=== PATIENT | female | born 1950 | race Caucasian/White ===

== ENCOUNTER 2017-04-11 15:07 | Outpatient (CLI) | payer MEDICARE, OTHER | END 2017-04-11 15:08 | disposition critical access hospital (66) | LOC: EMS 15:07 | PROVIDERS: ATTEND Surgery | DX: R56.9 Unspecified convulsions (principal) | CPT/HCPCS: A0425; A0427 ==

== ENCOUNTER 2017-04-11 15:41 | Inpatient (IN) | payer MEDICARE, OTHER ==
[2017-04-11] MEDS ORDERED: levETIRAcetam INJ 1,000 MG in SODIUM CHLORIDE 0.9% 100ML 100 ML IV STA (15:43)
[2017-04-11] MEDS ORDERED: SODIUM CHLORIDE 0.9% 1,000 ML IV ONE (15:43)
[2017-04-11] MEDS ORDERED: IOPAMIDOL-300 100 ML VIAL IVP ONE (16:53)
[2017-04-11] MEDS ORDERED: DEXAMETHASONE 10 MG/ML VIAL IVP STA (17:39)
[2017-04-11] MEDS ORDERED: DEXAMETHASONE 10 MG/ML VIAL ONE (17:40)
[2017-04-11] MEDS ORDERED: ONDANSETRON ODT 4 MG TABLET TL PRN (18:32)
[2017-04-11] MEDS ORDERED: MORPHINE 2 MG/ML SYRINGE IVP PRN (18:32)
[2017-04-11] MEDS ORDERED: PROCHLORPERAZINE 10 MG/2 ML VIAL IVP PRN (18:32)
[2017-04-11] MEDS ORDERED: HYDROcod/ACETAM 5/325 MG TABLET PO PRN (18:32)
[2017-04-11] MEDS ORDERED: ACETAMINOPHEN 325 MG TABLET PO PRN (18:32)
[2017-04-11] MEDS ORDERED: ONDANSETRON 4 MG/2 ML VIAL IVP PRN (18:32)
[2017-04-11] MEDS: SODIUM CHLORIDE 0.9% 1,000 ML IV SCH (19:30)
[2017-04-11] MEDS: levETIRAcetam 250 MG TABLET PO SCH (20:36)
[2017-04-11] MEDS: SODIUM CHLORIDE FLUSH 0.9% 10 ML SYRINGE IVP SCH (20:38)
[2017-04-12] MEDS: SODIUM CHLORIDE 0.9% 1,000 ML IV SCH ×2 (04:51→14:19)
[2017-04-12] MEDS: SODIUM CHLORIDE FLUSH 0.9% 10 ML SYRINGE IVP SCH ×3 (05:03→22:32)
[2017-04-12] MEDS: DEXAMETHASONE 4 MG TABLET PO SCH (08:51)
[2017-04-12] MEDS: levETIRAcetam 250 MG TABLET PO SCH ×2 (08:51→22:25)
[2017-04-12] MEDS: POLYETHYLENE GLYCOL 3350 17 GM PACKET PO SCH (08:52)
[2017-04-12] MEDS: SODIUM CHLORIDE FLUSH 0.9% 10 ML SYRINGE IVP PRN (14:19)
[2017-04-12] MEDS ORDERED: GABAPENTIN 100 MG CAPSULE PO SCH (22:00)
[2017-04-13] MEDS: SODIUM CHLORIDE 0.9% 1,000 ML IV SCH (00:26)
[2017-04-13] MEDS: SODIUM CHLORIDE FLUSH 0.9% 10 ML SYRINGE IVP SCH ×2 (06:21→13:16)
[2017-04-13] MEDS: SODIUM CHLORIDE FLUSH 0.9% 10 ML SYRINGE IVP PRN (06:33)
[2017-04-13] MEDS: DEXAMETHASONE 4 MG TABLET PO SCH (08:36)
[2017-04-13] MEDS: levETIRAcetam 250 MG TABLET PO SCH ×2 (08:36→21:08)
[2017-04-13] MEDS: LISINOPRIL 5 MG TABLET PO SCH (08:36)
[2017-04-13] MEDS: SERTRALINE 25 MG TABLET PO SCH (08:37)
[2017-04-13] MEDS: POTASSIUM CHLORIDE INJ 40 MEQ in SODIUM CHLORIDE 0.9% 1,000 ML IV SCH ×2 (08:39→21:10)
[2017-04-13] MEDS: POLYETHYLENE GLYCOL 3350 17 GM PACKET PO SCH (08:39)
[2017-04-13] MEDS ORDERED: POTASSIUM CHLORIDE 20 MEQ TABLET PO SCH (09:00)
[2017-04-13] MEDS ORDERED: MAGIC MOUTHWASH PO PRN (13:00)
[2017-04-13] MEDS ORDERED: MAGNESIUM SULFATE 2 GRAM 50 ML IV ONE (15:00)
[2017-04-14] MEDS: SODIUM CHLORIDE FLUSH 0.9% 10 ML SYRINGE IVP PRN (05:31)
[2017-04-14] MEDS: SODIUM CHLORIDE FLUSH 0.9% 10 ML SYRINGE IVP SCH ×3 (05:31→21:22)
[2017-04-14] MEDS: levETIRAcetam 250 MG TABLET PO SCH ×2 (08:57→21:22)
[2017-04-14] MEDS: LISINOPRIL 5 MG TABLET PO SCH (08:57)
[2017-04-14] MEDS: DEXAMETHASONE 4 MG TABLET PO SCH (08:57)
[2017-04-14] MEDS: POLYETHYLENE GLYCOL 3350 17 GM PACKET PO SCH (08:57)
[2017-04-14] MEDS: SERTRALINE 25 MG TABLET PO SCH (09:00)
[2017-04-14] MEDS ORDERED: oxyCODONE 10 MG/0.5 ML SYRINGE PO PRN (12:28)
[2017-04-15] MEDS: SODIUM CHLORIDE FLUSH 0.9% 10 ML SYRINGE IVP SCH ×2 (09:29→14:09)
[2017-04-15] MEDS: DEXAMETHASONE 4 MG TABLET PO SCH (09:30)
[2017-04-15] MEDS: levETIRAcetam 250 MG TABLET PO SCH (09:31)
[2017-04-15] MEDS: LISINOPRIL 5 MG TABLET PO SCH (09:31)
[2017-04-15] MEDS: POLYETHYLENE GLYCOL 3350 17 GM PACKET PO SCH (09:31)
[2017-04-15] MEDS: SERTRALINE 25 MG TABLET PO SCH (09:32)
[2017-04-15] MEDS ORDERED: POTASSIUM CHLORIDE 20 MEQ TABLET PO SCH (13:00)
[2017-04-15] MEDS: SODIUM CHLORIDE FLUSH 0.9% 10 ML SYRINGE IVP PRN (15:04)
== END 2017-04-15 15:15 | DRG 100 ==
DX: R56.9 Unspecified convulsions (principal); G93.6 Cerebral edema; C79.31 Secondary malignant neoplasm of brain; I42.7 Cardiomyopathy due to drug and external agent; D63.0 Anemia in neoplastic disease; E87.6 Hypokalemia; T45.1X5S Adverse effect of antineoplastic and immunosuppressive drugs, sequela; B37.9 Candidiasis, unspecified; R19.7 Diarrhea, unspecified; F32.9 Major depressive disorder, single episode, unspecified; M79.2 Neuralgia and neuritis, unspecified; Z92.3 Personal history of irradiation; Z85.038 Personal history of other malignant neoplasm of large intestine; Z90.49 Acquired absence of other specified parts of digestive tract; Z86.79 Personal history of other diseases of the circulatory system

== ENCOUNTER 2017-04-21 07:05 | Outpatient (CLI) | payer MEDICARE, OTHER | END 2017-04-21 07:06 | disposition home or self-care (01) | LOC: LAB.R 07:05 | DX: G40.901 Epilepsy, unspecified, not intractable, with status epilepticus (principal); Z51.81 Encounter for therapeutic drug level monitoring | CPT/HCPCS: 80177 ==

== ENCOUNTER 2017-04-28 15:15 | Outpatient (CLI) | payer MEDICARE, OTHER ==
[2017-04-28 16:16] LABS: BILIRUBIN,URINE NEGATIVE (NEGATIVE)
[2017-04-28 16:20] LABS: UA w/ MICROSCOPIC CHARGE YES
[2017-04-28 16:29] LABS: WBC,URINE >25 /HPF (0-5)
[2017-04-28 16:30] LABS: UR CULTURE IF IND INDICATED
== END 2017-04-28 15:16 | disposition home or self-care (01) ==
LOC: LAB.R 15:15
DX: N39.0 Urinary tract infection, site not specified (principal)
CPT/HCPCS: 81001; 81003; 87077; 87086

== ENCOUNTER 2017-05-02 15:30 | Outpatient (CLI) | payer MEDICARE, OTHER ==
--- NOTE | 2017-05-05 09:18 | CONSULTATION NOTE ---
DATE OF CONSULTATION: 05/03/2017 00:00:00 REQUESTING PROVIDER: Kal Oliveira MD TIME OF VISIT: 1530 to 1645 TOPIC: Followup palliative care consult. Thank you, Dr. Oliveira, for asking the palliative care consult service to be involved in the care of yo ur patient. I am asked to provide support for symptom management as well as goals of care. BRIEF HISTORY OF PRESENT ILLNESS: This is a adis 67-year-old woman with metastatic right colon canc er to the liver, lung, and lymph nodes since 10/2015. She did undergo a right hemicolectomy in 5 and has had intermittent diarrhea related to her short bowel syndrome, as well as chemotherapy caus ing increased exacerbations of the diarrhea. She did have a long and complicated [facility] with many disappointments as far as finding advanced disease on diagnosis. This continues to be of much sadness, particularly to her . Her care has been split between [place], [place] and up [facility] related to their "snowbird schedule." She has finished full cycles of FOLFOX and Avastin, which she finished in 05/2016. At that point in time, was showed to have residual periaorti c adenopathy, was unable to tolerate Xeloda and Avastin due to toxicity so had received maintenance 5 -FU and Avastin since 07/2016. She did return back to [place] to follow up at her oncologist down the re. It was discovered that she did have cardiomyopathy and CHF with diastolic dysfunction so she was off therapy for a couple of months for which they actually did have some time that they enjoyed and t raveled in their RV. In 12/2016, her CEA was rising and it was discovered she had underlying neuro sy mptoms that included tremors and leaning to the left. 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 She did undergo brain irradiation, which was completed in 01/2017 and after that was tapered off her Decadron, which she finished on her travels back here to [facility]. They re turned here about the beginning of March. After her taper, unfortunately she had some recurrent seizure s and was admitted to [facility] from 04/12/2017 to 04/15/2017 with vasogenic edema, progressive brain mets, acute anemia and hypokalemia. On discharge, she was discharged to [facility] and actually wa s improving until just previous to her discharge she did present with some symptoms of UTI, fortunate ly they are waiting for the [facility], and just today has started on her Keflex 250 mg 4 times a day x5 d ays. She is quite weak, very tremulous and appears quite frail and fragile. She has been home for a c ouple of days now. Her is quite concerned as it is his perception she has lost ground, has le ss energy to be able to ambulate, is mostly wheelchair bound, is feeling weakened overall. SYMPTOM BURDEN: The patient denies any pain though she does have lower extremity neuropathy, chemothe rapy-induced. Some tenderness with palpation to her lower extremities, but mostly it is numbness. She also has some that extends up to her forearms. This has impacted her balance detention. She presents with fatigue and tiredness, shakiness. Denies nausea. Her appetite is poor though she is trying to k eep her caloric intake up. She has some intermittent shortness of breath. Denies depression. Please s ee palliative care discussion. Presents with anxiety and is quite concerned about her quality of life . PERFORMANCE STATUS: The patient is able to ambulate a few steps with her walker. She had actually mad e quite a bit of progress with PT and OT. We are all hoping that this is just as a result of her UTI. She does need assistance with bathing. I would put her on a palliative care performance status of 50 % today. REVIEW OF SYSTEMS ENT: She does have some generalized mouth discomfort. Has been having ongoing symptoms of oral candid iasis for which she has taken nystatin. CARDIOVASCULAR: She does describe some intermittent chest pain that she calls twinges. It does happen about 1 time a day, does not stay sustained, but is of course a concern. She does have exertional dy spnea. RESPIRATORY: Does have shortness of breath with exertion. No cough. GASTROINTESTINAL: She does have loose stools. The incontinence has gotten better, but her episodes ar e about 2-3 a day now. She does have poor appetite, early satiety, and has not had any nausea. GENITOURINARY: She denies pain and burning, has had intermittent incontinence. Does have some urgency , and now has confirmed UTI. MUSCULOSKELETAL: She is quite weak and shaky. INTEGUMENTARY: She does have a dressing intact on her left toe. Was recently changed though so I did not look at it. She reports it is a residual toenail that has come off. NEUROLOGIC: She has not had any recurrent seizures. She does have some short-term memory issues. 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 PSYCHIATRIC: Please see palliative care discussion. ENDOCRINE: No history of hypothyroidism or diabetes. HEMATOLOGIC: She has anemia. Her last counts were from the hospital from 04/15/2017 show her white co unt up at 11.6, hemoglobin 11.1, hematocrit 33.6, neutrophils 7.8 consistent hopefully with just her UTI. She also has low potassium at 3.3, total protein 5.3, albumin 2.5. PHYSICAL EXAMINATION GENERAL APPEARANCE: The patient does appear with alopecia, quite frail, somewhat tremulous and fragil e in appearance. She is intermittently tearful through our exam. EYES: Normal on inspection. ENT: She does have candidiasis lesions on her tongue buccally and toward the back of her throat. She denies discomfort with this. NECK: Trachea is midline. RESPIRATORY: Her breath sounds are clear throughout. CARDIOVASCULAR: Her pulse is 110. She is quite tachy. Blood pressure 112/62. Her O2 saturations are 9 5%. Her temperature today is 96.9. ABDOMEN: Hyperactive bowel tones, somewhat distended. SKIN: Her color is pale. She does have bruising on her left arm. EXTREMITIES: She is somewhat tremulous on her left side. She does follow all commands. I did not have her ambulate today. ALLERGIES: GABAPENTIN. MEDICATION LIST 1. Dexamethasone 4 mg twice a day. 2. Keppra 500 mg twice a day. 3. Lisinopril 5 mg daily. 4. Potassium chloride 20 mEq daily. 5. Vitamin D3, 1000 units 1 tab daily. 6. Calcium 600 mg 1 tab twice daily. 7. Nystatin 1000 units/mL, up to 5 mL 3 times a day. 8. Keflex 250 mg 4 times a day x5 days. 9. Hydrocodone/APAP 5/325 mg 1 tablet up to every 4 hours as needed for moderate to severe pain. 10. Tylenol 325 mg 2 tablets up to every 4 hours for mild to moderate pain. 11. Ondansetron 4 mg 1 tablet under tongue every 6 hours as needed for nausea. PALLIATIVE CARE DISCUSSION: Who was present: Myself, the patient, and her Álvaro. We did revi ew her current journey up to this point, as far as disappointments and successes along the way. When asked her understanding of her illness, both of them do appear to understand that she is seriously il l but are quite hopeful that she will return to some level of functioning and improved quality of lif e, hoping for increased quantity of life as well. The patient did not share explicitly that she under stands her decline, but did share she is hoping for the best to stay positive and upright, and her go al is to return to some level of independence. There has been some concern expressed through other sd mbers of the clinical team that her is having trouble accepting her prognosis. I did spend qu ite a bit of time talking with the about his concerns; he is hopeful for some improvement and his approach of wanting to keep a good attitude and hope for the best for her. She has a daughter Ector hung who has been providing good support through the last few years, she will be part of the [facility] and is expected within the next few days; she is going to assist them with bathing. Álvaro drake feels like he is doing fairly well in meeting her needs and this is confirmed by the patient. Latia linares's perception is that he is a 32-year [place] man and team truck driver, and this is not his forte, but stephania emmanuelly is quite adoring of his and very fearful of her decline. Given their request to focus on t he here and now, though the patient does know that she can ask questions if things are changing, I di d not approach revisiting the POLST form, which currently is FULL CODE WITH LIMITED INTERVENTIONS. Gi alexia the current situation, the agreement was to allow them to set the goals and would provide support and assistance along the way, of course recognizing the situation remains tenuous. In the context of her goals, as far as wanting to regain strength hopefully, she [facility]. This was confirmed. IMPRESSION: This is a 67-year-old woman with metastatic colon cancer to the liver, lung, and nodes, n ow with metastatic disease to the brain. She presents as fairly frail and fragile with the hope to ga in quality and quantity of life over the next several months. Will accept palliative care support for meeting these goals and will provide anticipatory guidance as allowed and indicated. RECOMMENDATIONS/COUNSELING DONE 1. UTI. The patient is just now starting her antibiotic. Does show sensitivity to the medication she is on. Unfortunately, also is high risk for exacerbating her diarrhea. She has used Imodium and Lomot il in the past, but has found most helpful in slowing down her output is Benefiber. She will resume t his, but also aware she may need to start the Lomotil as well. She reports she often ends up with vag inal candidiasis. Given she already has oral candidiasis, I will go ahead and give her a prescription for Diflucan 150 mg x1 as she does not feel she can currently manage a Monistat course of vaginal cr eam. 2. Generalized weakness. The patient does need wheelchair to be able to maneuver in the house to meet her care needs as far as supporting her activities of daily living, transfer to the bathroom for turner leting and bathing cannot be sufficiently resolved by a walker. Given her fatigue, lack of strength, and left-sided weakness. She can safely use a manual wheelchair in her home, but will need specificat ions due to her mobile home. Her is available as well for using the wheelchair to help access toileting and bathing facilities if patient needs assistance. These would include an outer wheelbase of 23-3/4 inches, a seat base of 18 inches, a 2.5 inch pad, as well as a 16 x 16 seated upright comp onent. This will assist in meeting her day to day needs. She also will need PT and OT for strengtheni ng and equipment training, PT for transfer training, OT for bath setup, and home health aide, if acce pted, for bathing assist. 3. Left toe wound. Currently has a dressing on but was being addressed at the care home. She will need dressing changes every few days, cleanse the toe with normal saline and cover with a piece of Xe roform and then wrap with gauze and secure tape, changing every other day or as soiled. She will need nursing to oversee this as well as nursing to oversee her symptom management and medication adherenc e. She was unable to get an appointment with Dr. Vazquez until May. Did recommend she follow up with Dr. Batsheva Chris, who is in [place], to see if she can get a sooner appointment. 4. Advanced care planning. The patient does have a POLST form that she had done with Anushka SRINIVASAN . At this point in time, we are reestablishing rapport. We will revisit this at a future appointment. Her goals currently are to try and regain some independence, focus on quality of life, recognizing t hat quantity of life is limited and hoping for the best. She does have a fairly strong nicole based ap proach to life, they are not currently connected to any community or nicole community. I did offer the medical palliative care safety professional and they will let me know if this will be of help. 5. Protein-calorie malnutrition. I did encourage to continue to push calories, small frequent feeding s. Given her ongoing dose of Decadron and some intermittent chest discomfort, I did recommend they re institute her Prilosec twice a day. Also encouraged some kind of supplement. She is LACTAID INTOLERAN T and they will continue to work on her caloric intake. Thank you, Dr. Oliveira, for asking the palliative care consult service to be involved in the care of yo ur patient. I will continue to provide support in the current situation. The patient does require [facility], did provide a [id number] today for services with nursing for wound care, medication adher ence and symptom management followup, PT for transfer training and strengthening and caregiver traini javi, OT for bath setup and ADLs and dressing, and home health aide for bathing assistance. The patient does have significant fatigue and weakness related to her disease and recent infection, and remains homebound. It is a taxing and considerable effort for her to leave the home. TIME SPENT: Seventy-five minutes with greater than 50% of this done in counseling, coordination of ca re, followup with home health referral, their review of home management, recommendations for symptoms and anticipatory guidance. JOB #: [id number] EXT JOB #:[id number]
== END 2017-05-02 15:31 | disposition home or self-care (01) ==
LOC: PC 15:30
PROVIDERS: ATTEND Nurse Practitioner Adult Health
DX: Z51.5 Encounter for palliative care (principal); N39.0 Urinary tract infection, site not specified; R53.1 Weakness; S91.109A Unspecified open wound of unspecified toe(s) without damage to nail, initial encounter; E46 Unspecified protein-calorie malnutrition; R19.7 Diarrhea, unspecified; B37.0 Candidal stomatitis; C18.2 Malignant neoplasm of ascending colon; C78.7 Secondary malignant neoplasm of liver and intrahepatic bile duct; C78.00 Secondary malignant neoplasm of unspecified lung; C77.9 Secondary and unspecified malignant neoplasm of lymph node, unspecified; Z90.49 Acquired absence of other specified parts of digestive tract; K91.2 Postsurgical malabsorption, not elsewhere classified; I42.9 Cardiomyopathy, unspecified; I50.30 Unspecified diastolic (congestive) heart failure; Z99.3 Dependence on wheelchair; R53.83 Other fatigue; G62.0 Drug-induced polyneuropathy; R06.02 Shortness of breath; F41.9 Anxiety disorder, unspecified; R07.9 Chest pain, unspecified; R68.81 Early satiety; Z79.891 Long term (current) use of opiate analgesic
CPT/HCPCS: 99350

== ENCOUNTER 2017-05-13 08:00 | Outpatient (CLI) | payer MEDICARE, OTHER ==
[2017-05-13 19:15] LABS: HCT - HEMATOCRIT 36.1 % (37.0-47.0); HGB - HEMOGLOBIN 11.6 g/dL (12.0-16.0); MEAN CORPUSCULAR HEMOGLOBIN 30.1 pg (27.0-31.0); MEAN CORPUSCULAR HGB CONC 32.2 g/dL (32.0-36.0); MEAN CORPUSCULAR VOLUME 93.4 fL (81.0-99.0); MEAN PLATELET VOLUME 8.9 fL (7.9-10.8); RED BLOOD COUNT 3.87 10^6/uL (4.20-5.40); RED CELL DISTRIBUTION WIDTH 19.7 % (12.0-15.0); WHITE BLOOD COUNT 13.1 x10^3/uL (4.8-10.8)
[2017-05-13 19:52] LABS: ALBUMIN/GLOBULIN RATIO 0.8 (1.0-2.2); BILIRUBIN,TOTAL 3.4 mg/dL (0.2-1.0); CALCIUM 9.2 mg/dL (8.5-10.3); CREATININE 0.5 mg/dL (0.4-1.0); POTASSIUM 4.8 mmol/L (3.5-5.0)
[2017-05-13 20:12] LABS: FOLATE 10.82 ng/mL (5.90 - >24.8)
[2017-05-13 20:20] LABS: THYROID STIMULATING HORMONE 2.38 uIU/mL (0.34-5.60)
[2017-05-15 05:18] LABS: TEST RESULT REPORT (())
== END 2017-05-13 08:01 | disposition home or self-care (01) ==
LOC: LAB.R 08:00
PROVIDERS: ATTEND Family Medicine
DX: M12.89 Other specific arthropathies, not elsewhere classified, multiple sites (principal); C18.9 Malignant neoplasm of colon, unspecified; R10.9 Unspecified abdominal pain; Z79.899 Other long term (current) drug therapy
CPT/HCPCS: 80053; 80177; 81256; 81599; 82607; 82746; 84439; 84443

== ENCOUNTER 2017-05-14 14:30 | Outpatient (CLI) | payer MEDICARE, OTHER ==
--- NOTE | 2017-05-14 22:09 | CONSULTATION NOTE ---
DATE OF CONSULTATION: 05/14/2017 00:00:00 REQUESTING PROVIDER: TIME OF VISIT: 1430 to 1600. TOPIC: Followup palliative care consult. Thank you, Dr. Oliveira, for asking the palliative care consult service to be involved in the care of yo ur patient. I am providing support for symptom management, as well as goals of care. BRIEF HISTORY OF PRESENT ILLNESS UPDATE: This is a adis 67-year-old woman with metastatic right col on cancer to the liver, lung, and lymph nodes since October of 2015. She has undergone a right hemic olectomy in October 2015. She continues to have intermittent diarrhea related to short bowel syndrom e, and now she has continued loose stools. She denies any change in this. What she does present with as different, is increasing abdominal pain. This is relieved with eating. It is increased prior to pr essure in her bowels, and after bowel movement has some relief with a movement but she does have sign ificant distress and acute cramping pain. She denies any change in the consistency of her stools. No bleeding, no increase in wateriness, but she has had some incontinence of stool. She currently is jacinto ng serviced by home health in attempt, as she has been recently hospitalized, to improve her strength . She was discharged from the long term and was improving but since that time has continued to det eriorate. She is significantly weak, having difficulty getting from sitting to standing. Transfers ar e becoming more difficult. She does get breathless with any kind of activity. She has been spending m ost of her time in bed at this point the last few days. She is only able to manage a few steps. She r eports she is eating fairly well, but she does appear somewhat thinner with temporal and upper and lo wer body wasting. She had established with her new primary care on 05/05/2017, I believe, and at that point in time was started on Cipro 250 b.i.d. She had been treated with Keflex prioir and now with c ontinued symptoms of UTI. The patient is quite fatigued, is feeling overwhelmed. She is quite tearful. She has some underlying anxiety. She reports she is just feeling overwhelmed and tired of the continued suffering and continu ed decline. Please see palliative care discussion. She does perceive her quality of life as quite poo r currently. PERFORMANCE STATUS: The patient is only able to ambulate a few steps with her walker, has been initia diane with home health PT. Remains quite weak. They were hoping for some improvement in functional stat us. She has been mostly bed-bound. She does need assistance with bathing, and I would put her on a [facility] performance status of 40% today. REVIEW OF SYSTEMS EARS, NOSE, AND THROAT: She has had some generalized mouth discomfort. She continues with nystatin an d her mouth is with some improvement. CARDIOVASCULAR: Denies chest pain today. RESPIRATORY: Shortness of breath with any exertion. No cough. GASTROINTESTINAL: She continues to have loose stools. Her appetite has been fair. She has early satie ty, has had no nausea. GENITOURINARY: She still has some discomfort with voiding and some intermittent incontinence. MUSCULOSKELETAL: She is quite weak and shaky. INTEGUMENTARY: She has a dressing intact on left toe. Her decubitus is improving per home health nurs ing notes. NEUROLOGIC: No recurrent seizures. She does have some short-term memory issues and residual chemother apy-induced peripheral neuropathy. PSYCHIATRIC: See palliative care discussion. ENDOCRINE: History of hypothyroidism or diabetes. HEMATOLOGIC/IMMUNOLOGIC: She had some labs drawn yesterday. Her white count is 13.1, hemoglobin 11.6, hematocrit 36.1. Her neutrophils are 11.3. Chemistries: Her potassium is 4.8, sodium 136, BUN 22, GF R 124, total bilirubin 3.4. This is elevated from her baseline. She last had her bilirubin done on . It was 1.2, so it is worsening. AST 137, ALT 104, alkaline phosphatase 352, LDH 2135. This is increased from last August from 157. Total protein 6.0, albumin 2.6. PHYSICAL EXAMINATION GENERAL: The patient does have alopecia. She appears quite frail. She is quite tearful and fragile in appearance. EYES: Periorbital edema. EARS, NOSE, AND THROAT: Her mouth has cleared some. NECK: Trachea is midline. RESPIRATORY: Her breath sounds are diminished but clear throughout. CARDIOVASCULAR: Her pulse is 59, blood pressure 102/64, temperature 98.1. Her O2 saturations on room air are 95%. ABDOMEN: Quite tender to palpation over all 4 quadrants. She does have hyperactive bowel tones, some slight distention. ALLERGIES: GABAPENTIN. MEDICATION LIST 1. Ciprofloxin 250 mg 1 tab b.i.d.. 2. Lisinopril 5 mg daily. 3. Catalyst amino acid 2 tabs daily. 4. Calcium Plus 250 mg 1 tab b.i.d. 5. CorePlex multivitamin 1 tab daily. 6. Probiotic 1-2 tablets daily. 7. Clear Mood Oral 1-2 tablets daily. 8. Nystatin 1000 units oral 5 ml t.i.d. 9. Vitamin D3 5000 units daily. 10. Potassium 20 mEq 1 tab daily. 11. Keppra 500 mg 1 tab b.i.d. 12. Dexamethasone 40 mg 1 tab b.i.d. CODE STATUS: Please see palliative care discussion. Did complete a POLST. The patient is a DO NOT ATT EMPT RESUSCITATION, LIMITED INTERVENTIONS, DETERMINE THE USE OF ANTIBIOTICS WITH COMFORT THE GOAL, AND NO MEDICALLY ASSISTED NUTRITION. PALLIATIVE CARE DISCUSSION Who is present: Myself, the patient, her , Álvaro, and their son, El. We did review her curr ent results of her labs. She had gotten a call from Dr. Hein's office, but she has had intermitte nt confusion and says she does not remember the content. They told her to grape picker a new antibiotic, t tejal when they went to pick it up, it was the same one that she currently is on. We did review. Her white count remains elevated. I am concerned for ongoing infection, though it certainly could be attr ibuted to her ongoing high Decadron dose of 4 mg b.i.d. Her liver enzymes are increasex, which most l ikely reflects progressive disease. She has had functional decline, less energy, some increased abdom inal pain and discomfort, and some intermittent confusion. Much time was spent in discussion, weighin g benefits and burdens of followup to see the underlying etiology, if the patient does indeed have pr ogressive disease, and using that information to determine the next step in her plan of care. Her hus band very much is concentrating on her journey with the brain METS, history of seizures, her needing to be on the high-dose steroids, worried that we were missing an opportunity to provide intervention for irreversible condition, worried about having the scans too early. I did follow up and call Dr. Nahid sullivan. He was fine with the scans being done urgently to informed decision-making and setting of goals. Did discuss I should call and give report to the emergency room and help pave the way. We were in the midst of setting this up and then the patient has said that she has had enough, that s he did not want to go in, that when your time comes, that we should just let her time come, that she is getting tired of fighting, and wants to just be comfortable and be at home, and she wanted to know what kind of support and what that would look like. We did initiate a conversation of hospice suppor t in alignment with goals of comfort only, accepting no further hospitalizations, scans. We would jus t focus on keeping her comfortable, being with her family and home. Her biggest concern of worry is a bout Álvaro being okay with supporting her in her wishes. She was actually fairly emphatic that she d id not want any more intervention, which is very difficult for him to hear, but in the context of thi s, all who were present said that it was up to the patient and though she is not feeling well, she ce rtainly has decision-making capacity. This has been actually quite consistent with her messaging that when her time comes, she was hopeful that Álvaro would be able to let her go. She has perceived that he has been in denial of the inevitable for her. We did review the POLST, including the DO NOT ATTEM PT RESUSCITATION. We left it at LIMITED INTERVENTIONS in case she did want to come into the hospital for further workup and encouraged her to take the next day or two to consider if these were still con sistent with her goals that we would treat her pain and anxiety, and she could make a different decis ion if she wanted to. I did meet with Álvaro and the son outside. Álvaro is afraid that he will regret not moving her forwa rd but also wants to be respectful and do what the patient wants. Yobany is in communication with his sister and is hoping also that if her symptoms are better controlled that she may be clear about what her wishes are. We did discuss that even if we sent her into the hospital and gathered the informati on, that we may be right back here within weeks, faced with the same decisions. The patient perceives herself as suffering. She is ready to be done. She had shared privately that she feels like she has hung in there and stuck around long enough for Álvaro, and she is ready to go. She would like to just go to sleep and have this over with. I did provide [employer] [facility] [employer] for Álvaro and ja o reviewed the hospice benefit, but stressing that needing to be consistent or supportive of the rashid ent's goals to keep her comfortable, no further hospitalization or interventions and would look at tting a hospital bed, increased support, and then they would become the 911. All were in agreement to give this a little bit of time to see if the patient is consistent in this messaging again in the ne xt day or two. She is feeling poorly. Her pain is worse, but she perceives her quality of life as berhane te poor. 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 She presents as fairly frail and fragile with increased weakness, abdom inal pain, dyspnea, and severe fatigue. The patient is struggling with defining what is most importan t to her, weighing that against her feelings about leaving her family behind and disappointing them. RECOMMENDATIONS/COUNSELING DONE 1. Abdominal pain, multifactorial in origin. I did go ahead and provide a prescription for morphine 2 0 mg/mL 0.25 ml = 5 mg every 3 hours p.r.n. I did instruct to put it in some grape or cranberry juice , just a small amount to hide the bitter taste. I encouraged her to have something in her stomach. Th ey do have prochlorperazine in the home if she gets nauseated, as well as I provided a prescription f or lorazepam. Her pain is somewhat intermittent in nature. Certainly of concern also though is the po ssibility of Clostridium difficile. Though there has been no change in her consistency of stool, she has been on antibiotics and steroids now. If she were to follow up into the ED, this would be somethi ng they could check. 2. Dyspnea. The patient's O2 saturations are okay. She is not anemic. She is certainly at risk for pn eumonia, though has had no choking or cough. She is just breathless with any kind of activity. Morphi ne would also be effective for breathlessness or dyspnea if this became more problematic for her. 3. Generalized weakness and fatigue. This, again, is multifactorial in origin and certainly impacted by her infection, the side effects of the Decadron with muscle wasting, and her poor nutritional stat us. She does have lower extremity swelling up to about her knees. Her feet are quite cold to touch. I would recommend a hospital bed, particularly if she transitions to hospice. ADVANCED CARE PLANNING: The patient remains quite distressed with her decreasing quality of life, her perceived suffering, anxiety and pain. She feels like she has done the good fight and is wanting to just allow natural . She is a woman of great nicole and does not see this is negative, but she is very worried about her and his "denial". We were able to talk some about the struggles for b oth of them, her leaving behind and him letting go and Álvaro's feelings about failure of the medical system in caring for his . We will leave it for them to spend some time considering about transi tioning to hospice for increased support and will leave it to contact me and if they do want to go th e emergency room, can call and give them an update regarding goals of care, the patient's failing and fragile status, and concerns about ongoing infection which may be resistant UTI, possible pneumonia, and/or possible high risk for C difficile. TIME SPENT: Ninety minutes with greater than 50% of this done in counseling and coordination of care, trying to tease out goals of care. The patient was pretty strident at this point in time and wanted to focus on comfort only, not to return to the hospital or ED. Her family is struggling with this dec ision. Will spend some time processing over the next 24 to 48 hours and transition to hospice if that decision is made. Coordination of care with Dr. Oliveira and will follow up with ED. Will update home h ealth as well. She does not want to see the occupational therapist at this point in time, will cancel tomorrows visit. JOB #: [id number] EXT JOB #:[id number]
== END 2017-05-14 14:31 | disposition home or self-care (01) ==
LOC: PC 14:30
PROVIDERS: ATTEND Nurse Practitioner Adult Health
DX: Z51.5 Encounter for palliative care (principal); R10.9 Unspecified abdominal pain; R06.00 Dyspnea, unspecified; R53.1 Weakness; R53.83 Other fatigue; R30.0 Dysuria; R32 Unspecified urinary incontinence; C18.2 Malignant neoplasm of ascending colon; C78.7 Secondary malignant neoplasm of liver and intrahepatic bile duct; C77.9 Secondary and unspecified malignant neoplasm of lymph node, unspecified; C78.00 Secondary malignant neoplasm of unspecified lung; C79.89 Secondary malignant neoplasm of other specified sites; C79.31 Secondary malignant neoplasm of brain; Z90.49 Acquired absence of other specified parts of digestive tract; K91.2 Postsurgical malabsorption, not elsewhere classified; Y83.6 Removal of other organ (partial) (total) as the cause of abnormal reaction of the patient, or of later complication, without mention of misadventure at the time of the procedure; L89.90 Pressure ulcer of unspecified site, unspecified stage; G62.0 Drug-induced polyneuropathy; T45.1X5S Adverse effect of antineoplastic and immunosuppressive drugs, sequela; R56.9 Unspecified convulsions; F41.9 Anxiety disorder, unspecified; Z66 Do not resuscitate; Z74.01 Bed confinement status; Z79.52 Long term (current) use of systemic steroids; Z87.440 Personal history of urinary (tract) infections
CPT/HCPCS: 99350